=== PATIENT | female | born 1995 | race Hispanic/Latino ===

== ENCOUNTER 2017-11-30 14:36 | Emergency (ER) | payer SELFPAY ==
[2017-11-30] MEDS ORDERED: Ketorolac Tromethamine 60 MG/2 ML VIAL ONE (16:55)
[2017-11-30] MEDS ORDERED: diphenhydrAMINE 25 MG CAP ONE (16:55)
[2017-11-30] MEDS ORDERED: Metoclopramide HCl 10 MG TAB PO SCH (17:00)
== END 2017-11-30 18:29 | disposition home or self-care (01) ==
LOC: ERS 14:36
DX: R51 Headache (principal)
CPT/HCPCS: 96372; J1885

== ENCOUNTER 2018-02-27 21:26 | Emergency (ER) | payer SELFPAY ==
--- NOTE | 2018-02-27 22:16 | RAD ---
THREE VIEW RIGHT ANKLE 02/27/18 CLINICAL HISTORY: Emergency evaluation, pain, injury. FINDINGS: There is no evidence of fracture or dislocation. Mild soft tissue swelling of the right ankle is pres ent. IMPRESSION: No acute osseous abnormality of the right ankle. Mild soft tissue swelling. Correlate clinically. POS: MIGUEL
--- NOTE | 2018-02-27 23:48 | RAD ---
RADIOGRAPH OF RIGHT FOOT SERIES THREE VIEWS: 02/27/18 INDICATION: Posttraumatic right foot pain. FINDINGS: There is mild metatarsus prima varus and hallux valgus deformity and slight overlying soft tissue pro minence. Lisfranc joint is maintained. There is no discrete fracture. IMPRESSION: No acute fracture of right foot. POS: C
== END 2018-02-27 23:27 | disposition home or self-care (01) ==
LOC: ERS 21:26
DX: S93.401A Sprain of unspecified ligament of right ankle, initial encounter (principal); X50.1XXA Overexertion from prolonged static or awkward postures, initial encounter; Y93.66 Activity, soccer

== ENCOUNTER 2018-03-08 22:01 | Emergency (ER) | payer SELFPAY ==
[2018-03-09] MEDS ORDERED: Dexamethasone 4 mg/ml Vial ONE (00:19)
[2018-03-09] MEDS ORDERED: Ibuprofen 200 MG TAB ONE (00:19)
== END 2018-03-09 01:50 | disposition home or self-care (01) ==
LOC: ERS 22:01
DX: R50.9 Fever, unspecified (principal)
CPT/HCPCS: 87081; 87430; 87804; 99283; J1100

== ENCOUNTER 2018-04-24 22:31 | Emergency (ER) | payer SELFPAY ==
[2018-04-24] MEDS ORDERED: Dexamethasone 4 mg/ml Vial ONE (23:55)
== END 2018-04-25 00:24 | disposition home or self-care (01) ==
LOC: ERS 22:31
DX: J02.9 Acute pharyngitis, unspecified (principal); F41.9 Anxiety disorder, unspecified
CPT/HCPCS: 87081; 87430; 99283; J1100

== ENCOUNTER 2018-08-29 00:55 | Emergency (ER) | payer SELFPAY ==
[2018-08-29 01:24] LABS: #Basophils 0.1 thou/uL (0.0-0.2); #Eosinphils 0.2 thou/uL (0.0-0.7); #Lymphocytes 4.1 thou/uL (1.20-3.40); #Monocytes 0.7 thou/uL (0.11-0.59); %Basophils 0.6 % (0.0-1.0); %Eosinophils 2.1 % (0.0-10.0); %Lymphocytes 45.3 % (21.0-51.0); %Monocytes 7.3 % (0.0-10.0); %Neutrophils 44.7 % (42.0-75.0); Hemoglobin 11.9 g/dL (12.0-16.0); Mean Corpuscular HGB CONC 32.7 g/dL (32.0-36.0); Mean Corpuscular Hemoglobin 27.9 pg (27.0-31.0); Mean Corpuscular Volume 85.4 fL (78.0-98.0); Mean Platelet Volume 7.7 fL (7.4-10.4); Platelet Count 265 thou/uL (130-400); RBC Distribution Width 14.1 % (11.5-14.5); Red Blood Cell (RBC) Count 4.28 mill/uL (4.20-5.40)
[2018-08-29 01:36] LABS: BHCG - Serum Negative (NEGATIVE); Pregs Control Background? CLEAR/WHITE (CLR/WHITE); Pregs Control Bar Appear? YES (CONTROL BAR)
[2018-08-29 01:51] LABS: ALT (SGPT) 11 U/L (8-55); AST (SGOT) 17 U/L (5-34); Albumin 4.6 g/dL (3.5-5.0); Alkaline Phosphatase 74 U/L (40-150); Anion Gap 13 mmol/L (10-20); BUN (Urea Nitrogen) 11 mg/dL (7.0-18.7); Bilirubin, Total 0.3 mg/dL (0.2-1.2); Calc. Creatinine Clearance 0 mL/min (70-130); Calcium 9.4 mg/dL (7.8-10.44); Carbon Dioxide 22 mmol/L (22-29); Chloride 107 mmol/L (98-107); Estimated GFR-MDRD Greater than 90; Globulin 2.9 g/dL (2.4-3.5); Glucose 94 mg/dL (70-105); Potassium 3.9 mmol/L (3.5-5.1); Protein, Total 7.5 g/dL (6.0-8.3); Sodium 138 mmol/L (136-145)
[2018-08-29 01:54] LABS: CKMB 0.3 ng/mL (0-6.6); Troponin I Less than 0.010 ng/mL (< 0.028)
[2018-08-29] MEDS ORDERED: Ibuprofen 200 MG TAB ONE (03:01)
--- NOTE | 2018-08-29 08:34 | RAD ---
RADIOGRAPH CHEST 1 VIEW: HISTORY: 23-year-old female with chest pain. FINDINGS: There are no air space densities, pulmonary edema, pneumothorax, or cardiomegaly. The lateral costop hrenic angles are sharp. IMPRESSION: No acute cardiopulmonary findings. frank POS: GERALDINE
== END 2018-08-29 03:04 | disposition home or self-care (01) ==
LOC: ERS 00:55
DX: R07.89 Other chest pain (principal); F17.210 Nicotine dependence, cigarettes, uncomplicated
CPT/HCPCS: 36415; 71045; 80053; 82553; 83880; 84484; 84703; 85025; 85379; 93005

== ENCOUNTER 2018-09-19 18:00 | Emergency (ER) | payer SELFPAY ==
[2018-09-19] MEDS ORDERED: Ketorolac Tromethamine 30 MG/ML VIAL ONE (18:22)
[2018-09-19 18:48] LABS: #Basophils 0.1 thou/uL (0.0-0.2); #Eosinphils 0.1 thou/uL (0.0-0.7); #Monocytes 0.6 thou/uL (0.11-0.59); #Neutrophils 5.5 thou/uL (1.40-6.50); %Eosinophils 1.2 % (0.0-10.0); %Lymphocytes 31.8 % (21.0-51.0); %Monocytes 6.5 % (0.0-10.0); %Neutrophils 59.5 % (42.0-75.0); Hemoglobin 12.9 g/dL (12.0-16.0); Mean Corpuscular HGB CONC 32.9 g/dL (32.0-36.0); Mean Corpuscular Hemoglobin 28.3 pg (27.0-31.0); Mean Platelet Volume 7.4 fL (7.4-10.4); Platelet Count 333 thou/uL (130-400); RBC Distribution Width 12.7 % (11.5-14.5); Red Blood Cell (RBC) Count 4.57 mill/uL (4.20-5.40); White Blood Cell (WBC) Count 9.3 thou/uL (4.8-10.8)
[2018-09-19 18:53] LABS: BHCG - Serum Negative (NEGATIVE); Pregs Control Background? CLEAR/WHITE (CLR/WHITE); Pregs Control Bar Appear? YES (CONTROL BAR)
[2018-09-19 19:07] LABS: ALT (SGPT) 11 U/L (8-55); AST (SGOT) 20 U/L (5-34); Albumin 4.6 g/dL (3.5-5.0); Alkaline Phosphatase 82 U/L (40-150); Anion Gap 11 mmol/L (10-20); BUN (Urea Nitrogen) 8 mg/dL (7.0-18.7); Bilirubin, Total 0.5 mg/dL (0.2-1.2); Calc. Creatinine Clearance 0 mL/min (70-130); Calcium 9.7 mg/dL (7.8-10.44); Carbon Dioxide 26 mmol/L (22-29); Chloride 104 mmol/L (98-107); Estimated GFR-MDRD Greater than 90; Globulin 3.1 g/dL (2.4-3.5); Glucose 88 mg/dL (70-105); Potassium 4.3 mmol/L (3.5-5.1); Protein, Total 7.7 g/dL (6.0-8.3); Sodium 137 mmol/L (136-145)
[2018-09-19 19:11] LABS: CKMB 0.6 ng/mL (0-6.6); Troponin I Less than 0.010 ng/mL (< 0.028)
--- NOTE | 2018-09-19 19:15 | RAD ---
CHEST TWO VIEWS: 09/19/18 COMPARISON: 08/29/18 HISTORY: Pain. FINDINGS: Normal cardiac silhouette. Pulmonary vessels and hilum are normal. Costophrenic angles are clear. No consolidation, or mass. No pneumothorax or osseous abnormalities. IMPRESSION: No acute cardiopulmonary process. POS: MIGUEL
== END 2018-09-19 19:55 | disposition home or self-care (01) ==
LOC: ERS 18:00
DX: M94.0 Chondrocostal junction syndrome [Tietze] (principal); F41.9 Anxiety disorder, unspecified; F17.210 Nicotine dependence, cigarettes, uncomplicated
CPT/HCPCS: 36415; 71046; 80053; 82553; 84484; 84703; 85025; 93005; 96372; J1885

== ENCOUNTER 2019-01-12 18:01 | Emergency (ER) | payer SELFPAY ==
[2019-01-12 18:40] LABS: #Basophils 0.1 thou/uL (0.0-0.2); #Lymphocytes 3.1 thou/uL (1.20-3.40); #Monocytes 0.7 thou/uL (0.11-0.59); #Neutrophils 6.2 thou/uL (1.40-6.50); %Basophils 1.1 % (0.0-1.0); %Eosinophils 0.4 % (0.0-10.0); %Lymphocytes 30.7 % (21.0-51.0); %Neutrophils 60.8 % (42.0-75.0); Mean Corpuscular HGB CONC 31.9 g/dL (32.0-36.0); Mean Corpuscular Hemoglobin 28.2 pg (27.0-31.0); Mean Corpuscular Volume 88.6 fL (78.0-98.0); Mean Platelet Volume 7.2 fL (7.4-10.4); Platelet Count 361 thou/uL (130-400); RBC Distribution Width 11.7 % (11.5-14.5); White Blood Cell (WBC) Count 10.2 thou/uL (4.8-10.8)
[2019-01-12 18:47] LABS: BHCG - Serum Negative (NEGATIVE); Pregs Control Background? CLEAR/WHITE (CLR/WHITE); Pregs Control Bar Appear? YES (CONTROL BAR)
[2019-01-12 19:00] LABS: ALT (SGPT) 14 U/L (8-55); AST (SGOT) 20 U/L (5-34); Albumin 5.1 g/dL (3.5-5.0); Alkaline Phosphatase 80 U/L (40-150); Anion Gap 16 mmol/L (10-20); BUN (Urea Nitrogen) 6 mg/dL (7.0-18.7); Bilirubin, Total 0.7 mg/dL (0.2-1.2); Calc. Creatinine Clearance 0 mL/min (70-130); Calcium 10.5 mg/dL (7.8-10.44); Carbon Dioxide 24 mmol/L (22-29); Chloride 104 mmol/L (98-107); Estimated GFR-MDRD Greater than 90; Globulin 3.4 g/dL (2.4-3.5); Glucose 96 mg/dL (70-105); Potassium 3.6 mmol/L (3.5-5.1); Protein, Total 8.5 g/dL (6.0-8.3); Sodium 140 mmol/L (136-145)
[2019-01-12 20:24] LABS: Bilirubin Negative (Negative); Blood, Urine Moderate (Negative); Clarity CLEAR (Clear); Glucose, Urine (Dipstick) Negative (Negative); Leukocyte Negative (Negative); Nitrite Negative (Negative); Protein, Urine (Dipstick) Negative (Neg-Trace); Urobilinogen 0.2 mg/dL (0.2-1.0); pH, Urine 7.5 (5.0-9.0)
[2019-01-12 20:29] LABS: Bacteria/HPF Rare-Few HPF (None Seen); Hyaline Casts/LPF 0-3 HYALINE CAST LPF (0-3 Hyaline); Pathc Cast-AUWi Flag 0.14 (0-2.49); RBC/HPF 0-3 HPF (0-3); WBC/HPF 0-3 HPF (0-3)
[2019-01-12] MEDS ORDERED: Ondansetron PF 4 MG/2 ML Vial ONE (21:19)
[2019-01-12] MEDS ORDERED: Promethazine HCl 25 MG/ML VIAL ONE (23:41)
[2019-01-13] MEDS ORDERED: Promethazine HCl 25 MG/ML VIAL ONE (01:07)
[2019-01-13] MEDS ORDERED: Lorazepam 2 MG/ML VIAL ONE (01:18)
== END 2019-01-13 01:25 | disposition home or self-care (01) ==
LOC: ERS 18:01
DX: F41.9 Anxiety disorder, unspecified (principal); F17.210 Nicotine dependence, cigarettes, uncomplicated
CPT/HCPCS: 80053; 81003; 81015; 84703; 85025; 96365; 96375; J2060; J2405; J2550

== ENCOUNTER 2019-01-13 22:58 | Emergency (ER) | payer SELFPAY ==
[2019-01-14 00:02] LABS: Pregnancy Test - Urine (BHCG) Negative (Negative); Pregu Control Background? CLEAR/WHITE (CLR/WHITE); Pregu Control Bar Appear? YES (CONTROL BAR)
[2019-01-14 00:03] LABS: Bilirubin Negative (Negative); Blood, Urine Negative (Negative); Clarity CLOUDY (Clear); Glucose, Urine (Dipstick) Negative (Negative); Leukocyte Negative (Negative); Nitrite Negative (Negative); Protein, Urine (Dipstick) Negative (Neg-Trace); Specific Gravity, Urine 1.017 (1.002-1.036); Urobilinogen 0.2 mg/dL (0.2-1.0)
[2019-01-14 00:03] LABS: #Basophils 0.1 thou/uL (0.0-0.2); #Lymphocytes 2.7 thou/uL (1.20-3.40); #Monocytes 0.6 thou/uL (0.11-0.59); %Basophils 1.2 % (0.0-1.0); %Eosinophils 0.5 % (0.0-10.0); %Neutrophils 59.3 % (42.0-75.0); Hemoglobin 12.4 g/dL (12.0-16.0); Mean Corpuscular HGB CONC 32.3 g/dL (32.0-36.0); Mean Corpuscular Hemoglobin 28.6 pg (27.0-31.0); Mean Corpuscular Volume 88.6 fL (78.0-98.0); Mean Platelet Volume 7.3 fL (7.4-10.4); Platelet Count 320 thou/uL (130-400); RBC Distribution Width 11.5 % (11.5-14.5); Red Blood Cell (RBC) Count 4.33 mill/uL (4.20-5.40); White Blood Cell (WBC) Count 8.4 thou/uL (4.8-10.8)
[2019-01-14 00:04] LABS: Specific Gravity 1.017 (1.002-1.036)
[2019-01-14 00:11] LABS: Amphetamine Not Detected (NotDetected); Benzodiazepine Screen Detected (NotDetected); Cocaine Metabolite Screen Not Detected (NotDetected); Medtox Reader # READER 1; Methamphetamine Not Detected (NotDetected); Opiate Screen Not Detected (NotDetected); Phencyclidine (PCP) Not Detected (NotDetected); THC/Cannabinoid Screen Not Detected (NotDetected)
[2019-01-14 00:12] LABS: Barbiturates Screen Not Detected (NotDetected); Medtox Control Line Valid? VALID (VALID); Methadone Not Detected (NotDetected); Oxycodone Screen Not Detected (NotDetected); Tricyclic Screen Not Detected (NotDetected)
[2019-01-14 00:21] LABS: ALT (SGPT) 18 U/L (8-55); AST (SGOT) 19 U/L (5-34); Albumin 4.6 g/dL (3.5-5.0); Alkaline Phosphatase 71 U/L (40-150); Anion Gap 14 mmol/L (10-20); BUN (Urea Nitrogen) 7 mg/dL (7.0-18.7); Bilirubin, Total 0.5 mg/dL (0.2-1.2); Calc. Creatinine Clearance 0 mL/min (70-130); Calcium 10.1 mg/dL (7.8-10.44); Carbon Dioxide 25 mmol/L (22-29); Chloride 104 mmol/L (98-107); Estimated GFR-MDRD Greater than 90; Globulin 2.9 g/dL (2.4-3.5); Glucose 102 mg/dL (70-105); Lipase 12 U/L (8-78); Potassium 4.1 mmol/L (3.5-5.1); Protein, Total 7.5 g/dL (6.0-8.3); Sodium 139 mmol/L (136-145)
[2019-01-14] MEDS ORDERED: Ondansetron ODT 4 MG TAB ONE (02:57)
[2019-01-14] MEDS ORDERED: Dicyclomine 20 MG TAB ONE (02:57)
== END 2019-01-14 04:25 | disposition home or self-care (01) ==
LOC: ERS 22:58
DX: F41.9 Anxiety disorder, unspecified (principal); F17.210 Nicotine dependence, cigarettes, uncomplicated
CPT/HCPCS: 36415; 80053; 80306; 81003; 81025; 83690; 85025; 99284; Q0162

== ENCOUNTER 2019-04-07 20:46 | Emergency (ER) | payer SELFPAY ==
[2019-04-07 21:24] LABS: #Basophils 0.1 thou/uL (0.0-0.2); #Eosinphils 0.1 thou/uL (0.0-0.7); #Lymphocytes 3.4 thou/uL (1.20-3.40); #Monocytes 0.8 thou/uL (0.11-0.59); #Neutrophils 5.4 thou/uL (1.40-6.50); %Basophils 0.9 % (0.0-1.0); %Eosinophils 0.7 % (0.0-10.0); %Lymphocytes 35.3 % (21.0-51.0); %Monocytes 7.7 % (0.0-10.0); %Neutrophils 55.4 % (42.0-75.0); Hemoglobin 12.8 g/dL (12.0-16.0); Mean Corpuscular HGB CONC 32.3 g/dL (32.0-36.0); Mean Corpuscular Hemoglobin 27.8 pg (27.0-31.0); Mean Corpuscular Volume 85.9 fL (78.0-98.0); Mean Platelet Volume 7.5 fL (7.4-10.4); Platelet Count 285 thou/uL (130-400); RBC Distribution Width 12.3 % (11.5-14.5); Red Blood Cell (RBC) Count 4.61 mill/uL (4.20-5.40); White Blood Cell (WBC) Count 9.7 thou/uL (4.8-10.8)
[2019-04-07 21:45] LABS: ALT (SGPT) 17 U/L (8-55); AST (SGOT) 22 U/L (5-34); Albumin 4.7 g/dL (3.5-5.0); Alkaline Phosphatase 54 U/L (40-150); Anion Gap 11 mmol/L (10-20); BUN (Urea Nitrogen) 12 mg/dL (7.0-18.7); Bilirubin, Total 0.5 mg/dL (0.2-1.2); Calc. Creatinine Clearance 0 mL/min (70-130); Carbon Dioxide 26 mmol/L (22-29); Chloride 104 mmol/L (98-107); Estimated GFR-MDRD Greater than 90; Glucose 89 mg/dL (70-105); Potassium 3.9 mmol/L (3.5-5.1); Protein, Total 7.7 g/dL (6.0-8.3); Sodium 137 mmol/L (136-145)
[2019-04-07 21:51] LABS: Bilirubin Negative (Negative); Blood, Urine Negative (Negative); Clarity CLEAR (Clear); Glucose, Urine (Dipstick) Negative (Negative); Leukocyte Negative (Negative); Nitrite Negative (Negative); Protein, Urine (Dipstick) Negative (Neg-Trace); Specific Gravity, Urine 1.034 (1.002-1.036); Urobilinogen 0.2 mg/dL (0.2-1.0)
[2019-04-07 21:54] LABS: Pregnancy Test - Urine (BHCG) Negative (Negative); Pregu Control Background? CLEAR/WHITE (CLR/WHITE); Pregu Control Bar Appear? YES (CONTROL BAR); Specific Gravity 1.034 (1.002-1.036)
--- NOTE | 2019-04-08 00:06 | ULT ---
Exam: Pelvic ultrasound HISTORY: Pelvic pain COMPARISON: None TECHNIQUE: Multiple grayscale and color Doppler images were obtained in a transabdominal pelvic ultra sound. Spectral analysis of the Doppler waveforms of the ovaries were performed. FINDINGS: CERVIX: Unremarkable UTERUS: Normal in size without focal abnormality. ENDOMETRIAL STRIPE: 1.8 mm which is mildly prominent for a patient of this age. No fluid or fluid col lection is seen in the endometrial canal. Small amount of free fluid is present. This is probably physiologic in origin. RIGHT OVARY: Normal flow, without focal mass. LEFT OVARY: Normal flow, without focal mass. IMPRESSION: 1. Normal-appearing uterus and bilateral ovaries. Endometrial stripe is mildly prominent, but this ma y be related to the stage of the patient's menstrual cycle. No fluid or fluid collection is seen in the endometrial canal. 2. Small amount of free fluid in the pelvis which is probably physiologic in origin.
== END 2019-04-08 00:36 | disposition home or self-care (01) ==
LOC: ERS 20:46
DX: R10.30 Lower abdominal pain, unspecified (principal); F41.9 Anxiety disorder, unspecified; Z87.891 Personal history of nicotine dependence
CPT/HCPCS: 36415; 76856; 80053; 81003; 81025; 85025

== ENCOUNTER 2019-06-18 12:41 | Emergency (ER) | payer SELFPAY ==
[2019-06-18 13:42] LABS: #Basophils 0.1 thou/uL (0.0-0.2); #Eosinphils 0.1 thou/uL (0.0-0.7); #Lymphocytes 2.3 thou/uL (1.20-3.40); #Monocytes 0.7 thou/uL (0.11-0.59); #Neutrophils 4.2 thou/uL (1.40-6.50); %Basophils 0.8 % (0.0-1.0); %Eosinophils 1.1 % (0.0-10.0); %Lymphocytes 31.4 % (21.0-51.0); %Monocytes 10.1 % (0.0-10.0); %Neutrophils 56.7 % (42.0-75.0); Hemoglobin 12.5 g/dL (12.0-16.0); Mean Corpuscular HGB CONC 33.8 g/dL (32.0-36.0); Mean Corpuscular Hemoglobin 30.3 pg (27.0-31.0); Mean Corpuscular Volume 89.6 fL (78.0-98.0); Mean Platelet Volume 7.7 fL (7.4-10.4); Platelet Count 261 thou/uL (130-400); RBC Distribution Width 13.2 % (11.5-14.5); Red Blood Cell (RBC) Count 4.13 mill/uL (4.20-5.40); White Blood Cell (WBC) Count 7.4 thou/uL (4.8-10.8)
[2019-06-18 14:15] LABS: ALT (SGPT) 10 U/L (8-55); AST (SGOT) 17 U/L (5-34); Albumin 4.3 g/dL (3.5-5.0); Alkaline Phosphatase 48 U/L (40-150); Anion Gap 8 mmol/L (10-20); BUN (Urea Nitrogen) 9 mg/dL (7.0-18.7); Bilirubin, Total 0.6 mg/dL (0.2-1.2); Calc. Creatinine Clearance 0 mL/min (70-130); Calcium 9.9 mg/dL (7.8-10.44); Carbon Dioxide 24 mmol/L (22-29); Chloride 107 mmol/L (98-107); Estimated GFR-MDRD Greater than 90; Globulin 2.9 g/dL (2.4-3.5); Glucose 62 mg/dL (70-105); Lipase 22 U/L (8-78); Potassium 4.2 mmol/L (3.5-5.1); Protein, Total 7.2 g/dL (6.0-8.3); Sodium 135 mmol/L (136-145)
[2019-06-18 15:15] LABS: Bacteria/HPF None Seen HPF (None Seen); Bilirubin Negative (Negative); Blood, Urine Negative (Negative); Clarity Clear (Clear); Glucose, Urine (Dipstick) Normal (Negative); Leukocyte Negative Leu/uL (Negative); Mucous/LPF 1+ LPF (<2+); Nitrite Negative (Negative); Protein, Urine (Dipstick) 30 mg/dL (Neg-Trace); WBC/HPF 0-3 HPF (0-3)
--- NOTE | 2019-06-18 15:54 | ULT ---
US Pelvic Transvag W Doppler History: Pelvic pain Comparison: Pelvic ultrasound March 2019 Findings: Real-time grayscale, color, and spectral analysis of the pelvis was performed transabdomina l and transvaginal approach. Adequate vascular flow to both ovaries. Likely corpus luteum in the right ovary. Normal peripheral fo llicles of the left ovary. Endometrial thickness is 1.8 cm. Within the fundus is a subtle anechoic round anechoic focus with deepa n diameter of 0.32 cm which may reflect an early gestational sac given the positive hCG. No pole. No free fluid in the cul-de-sac. No subchorionic hemorrhage. Impression: Thickened endometrium with 0.32 cm anechoic focus within the uterine fundus endometrial c avity can be an early gestational sac given the positive hCG. Close follow-up ultrasound and hCG recommended.
[2019-06-19 23:05] LABS: Chlamydia by PCR Not Detected (NotDetected); GC by PCR Not Detected (NotDetected)
== END 2019-06-18 16:29 | disposition home or self-care (01) ==
LOC: ERS 12:41
DX: O23.591 Infection of other part of genital tract in pregnancy, first trimester (principal); B96.89 Other specified bacterial agents as the cause of diseases classified elsewhere; O99.341 Other mental disorders complicating pregnancy, first trimester; F41.9 Anxiety disorder, unspecified; Z3A.01 Less than 8 weeks gestation of pregnancy
CPT/HCPCS: 36415; 76856; 80053; 81003; 81015; 83690; 84702; 85025; 86900; 86901; 87491; 87591

== ENCOUNTER 2019-10-03 19:54 | Emergency (ER) | payer SELFPAY ==
[2019-10-03 20:29] LABS: Bacteria/HPF None Seen HPF (None Seen); Bilirubin Negative (Negative); Blood, Urine Negative (Negative); Clarity Clear (Clear); Glucose, Urine (Dipstick) Normal (Negative); Leukocyte 25 Leu/uL (Negative); Mucous/LPF Rare LPF (<2+); Nitrite Negative (Negative); Pregnancy Test - Urine (BHCG) POSITIVE (Negative); Pregu Control Background? CLEAR/WHITE (CLR/WHITE); Pregu Control Bar Appear? YES (CONTROL BAR); Protein, Urine (Dipstick) 50 mg/dL (Neg-Trace); RBC/HPF 0-3 HPF (0-3); Specific Gravity 1.037 (1.002-1.036); Urobilinogen 3 mg/dL (Less than 2); WBC/HPF 0-3 HPF (0-3)
[2019-10-03 20:36] LABS: #Basophils 0.1 thou/uL (0.0-0.2); #Eosinphils 0.1 thou/uL (0.0-0.7); #Lymphocytes 2.7 thou/uL (1.20-3.40); #Monocytes 0.6 thou/uL (0.11-0.59); #Neutrophils 6.5 thou/uL (1.40-6.50); %Basophils 0.6 % (0.0-1.0); %Eosinophils 1.2 % (0.0-10.0); %Monocytes 6.3 % (0.0-10.0); %Neutrophils 64.9 % (42.0-75.0); Hemoglobin 10.9 g/dL (12.0-16.0); Mean Corpuscular HGB CONC 35.6 g/dL (32.0-36.0); Mean Corpuscular Hemoglobin 32.9 pg (27.0-31.0); Mean Corpuscular Volume 92.4 fL (78.0-98.0); Mean Platelet Volume 7.1 fL (7.4-10.4); Platelet Count 240 thou/uL (130-400); RBC Distribution Width 12.3 % (11.5-14.5)
[2019-10-03 20:56] LABS: ALT (SGPT) 8 U/L (8-55); AST (SGOT) 15 U/L (5-34); Albumin 3.7 g/dL (3.5-5.0); Alkaline Phosphatase 62 U/L (40-110); Anion Gap 10 mmol/L (10-20); BUN (Urea Nitrogen) 5 mg/dL (7.0-18.7); Bilirubin, Total 0.2 mg/dL (0.2-1.2); Calc. Creatinine Clearance 0 mL/min (70-130); Carbon Dioxide 26 mmol/L (22-29); Chloride 105 mmol/L (98-107); Estimated GFR-MDRD Greater than 90; Globulin 2.8 g/dL (2.4-3.5); Glucose 103 mg/dL (70-105); Potassium 3.5 mmol/L (3.5-5.1); Protein, Total 6.5 g/dL (6.0-8.3); Sodium 137 mmol/L (136-145)
[2019-10-03] MEDS ORDERED: Fentanyl 100 MCG/2 ML VIAL ONE (21:26)
== END 2019-10-03 22:27 | disposition home or self-care (01) ==
LOC: ERS 19:54
DX: O99.612 Diseases of the digestive system complicating pregnancy, second trimester (principal); K46.9 Unspecified abdominal hernia without obstruction or gangrene; Z3A.20 20 weeks gestation of pregnancy
CPT/HCPCS: 80053; 81003; 81015; 81025; 83690; 84702; 85025; 96361; 96374; J3010

== ENCOUNTER 2019-11-26 14:23 | Day surgery (SDC) | payer SELFPAY ==
[2019-11-26] MEDS ORDERED: hydrALAZINE 20 MG/ML VIAL SLOW IVP PRN (14:56)
[2019-11-26 15:01] VITALS: BP 108/62; TEMP 98.5; BMI 25.1
[2019-11-26 15:45] LABS: FFN Internal QC Analyzer PASS (PASS); FFN Internal QC Cassette PASS (PASS); Fetal Fibronectin Negative (Negative)
[2019-11-26 16:48] LABS: Bacteria/HPF None Seen HPF (None Seen); Bilirubin Negative (Negative); Blood, Urine Negative (Negative); Clarity Clear (Clear); Glucose, Urine (Dipstick) Normal (Negative); Leukocyte Negative Leu/uL (Negative); Nitrite Negative (Negative); Protein, Urine (Dipstick) Negative (Neg-Trace); RBC/HPF 0-3 HPF (0-3); Squamous Epithelial 0-3 HPF (0-3); Urobilinogen Normal mg/dL (Less than 2); WBC/HPF None Seen HPF (0-3)
--- NOTE | 2019-11-27 07:54 | SS ---
DATE OF ADMISSION: 11/26/2019 DATE OF DISCHARGE: 11/26/2019 REGULAR PHYSICIAN: Sean Correa MD EVALUATING PHYSICIAN: Ryland Fish MD CHIEF COMPLAINT: Back pain and contractions. HISTORY OF PRESENT ILLNESS: Ms. Lennon is a 24-year-old G4, P3, with an estimated date of confinement of 02/17/2020, who presents complaining of lower back pain as well as which she believes to be contractions since yesterday afternoon. She denies urinary symptoms, vaginal bleeding or ruptured membranes. Her care has been with Dr. Correa without complications. PAST OBSTETRICAL HISTORY: Includes three vaginal deliveries at term. PAST MEDICAL HISTORY: None. PAST SURGICAL HISTORY: None. CURRENT MEDICATIONS: vitamins. ALLERGIES: NO KNOWN ALLERGIES. SOCIAL HISTORY: Denies tobacco, alcohol, or drug use. FAMILY HISTORY: Unremarkable. REVIEW OF SYSTEMS: Denies nausea, vomiting, fever, chills, ruptured membranes, vaginal bleeding, or urinary frequency or pain. PHYSICAL EXAMINATION: VITAL SIGNS: Stable. She is afebrile. GENERAL: She is pleasant and in no acute distress. ABDOMEN: Soft, nontender, and gravid. heart rate tracing is stable with no decelerations. No uterine contractions are seen over her period of observation here. Vaginal exam shows the cervix to be closed, long, midposition, but soft. LABORATORY DATA: Urinalysis returned showing a specific gravity of 1.006 with negative protein, negative ketones, negative blood, negative nitrites, negative bilirubin, negative leukocyte esterase. On microscopic, there is 0-3 rbc's, no wbc's seen, 0-3 squamous cells with no bacteria. fibronectin returns negative. ASSESSMENT: 1. 28 and 1/7th week intrauterine . 2. No evidence of labor or pyelonephritis. PLAN: The patient will be dismissed to home. She can use Tylenol for any discomfort she has, as well as a heating pad low on her back. She voiced understanding of her discharge instructions and will return here should she have any labor symptoms. labor precautions were reviewed with her in detail. She will follow up with Dr. Correa for her next scheduled appointment. Job ID: [id number]
== END 2019-11-26 17:35 | disposition home or self-care (01) ==
LOC: L&D/OP 14:23
PROVIDERS: ATTEND Family Medicine
DX: O47.03 False labor before 37 completed weeks of gestation, third trimester (principal); O99.89 Other specified diseases and conditions complicating pregnancy, childbirth and the puerperium; M54.5 Low back pain; Z3A.28 28 weeks gestation of pregnancy
CPT/HCPCS: 81003; 82731; 99284

== ENCOUNTER 2020-01-06 21:48 | Day surgery (SDC) | payer OTHER ==
[2020-01-06 22:39] VITALS: BP 109/59; TEMP 98.2; BMI 27.8
[2020-01-06] MEDS ORDERED: hydrALAZINE 20 MG/ML VIAL SLOW IVP PRN (23:16)
[2020-01-06 23:22] LABS: Bacteria/HPF None Seen HPF (None Seen); Bilirubin Negative (Negative); Blood, Urine Negative (Negative); Clarity Clear (Clear); Glucose, Urine (Dipstick) Normal (Negative); Leukocyte Negative Leu/uL (Negative); Nitrite Negative (Negative); Protein, Urine (Dipstick) 50 mg/dL (Neg-Trace); Squamous Epithelial 0-3 HPF (0-3); Urobilinogen 3 mg/dL (Less than 2); WBC/HPF 0-3 HPF (0-3)
--- NOTE | 2020-01-07 04:48 | PRG ---
DATE OF SERVICE: 01/06/2020 PRIMARY OB: Dr. Sean Correa. CHIEF COMPLAINT: Abdominal pain. HISTORY OF PRESENT ILLNESS: The patient is a 25-year-old, G4, P3 female with an intrauterine at 34 weeks' gestation, presenting to Labor and Delivery with right lower quadrant pain that began about 8 o'clock this morning. The patient reports that she in fact began feeling it when she woke up at around 0645 hours , but that became more present at 8. The patient throughout the day reports that it got somewhat worse till about 8 p.m. this evening and leveled off in its pain. She reports that the pain is most present with activity and movement and with lifting her legs. She attempted Tylenol and a hot bath with little relief. Because she felt the pain was getting worse, she came for evaluation. She describes the pain at times as starting in the right lower quadrant and moving toward her flank. The patient denies fever. She denies headache, chest pain, shortness of breath, nausea, vomiting, diarrhea, constipation, hip problems, knee problems, muscle weakness, or any new rashes. The patient denies any vaginal bleeding, leakage of fluid, urinary urgency or frequency. PAST MEDICAL HISTORY: Negative. PAST SURGICAL HISTORY: Negative. ALLERGIES: NO KNOWN DRUG ALLERGIES. MEDICATIONS: 1. vitamins. 2. Iron. PHYSICAL EXAMINATION: VITAL SIGNS: Blood pressure 109/53, heart rate of 82, and respiratory rate of 14. GENERAL: She appears to be in no acute distress. She is pleasant and cooperative to interact with. HEENT: Head is normocephalic and atraumatic. LUNGS: Clear to auscultation bilaterally. HEART: Has regular rate and rhythm. ABDOMEN: Soft and gravid. The patient initially reported pain with light palpation in her right lower quadrant. On re-examination, the patient had negative Watkins sign. Had no other tenderness. Did not have any significant reproducible pain with deviation of the uterus to the left or right and tolerated deeper palpation. The point tenderness appears to be quite low in the pelvis on the right side. The patient has no CVA tenderness. EXTREMITIES: Nontender, nonedematous. : Cervical exam per nursing staff is fingertip, thick, and high. heart tracing shows the fetus with a baseline in the 130s with moderate long-term variability, positive 15 x 15 accelerations. She had a single deceleration early in her evaluation, unexplainable; however, for the following hour plus time that we watched her, nothing was reproducible. Tocometer shows some irritability, but no contraction pattern. LABORATORY DATA: Urinalysis shows specific gravity of 1.037, protein of 1+, trace ketones, negative nitrites, negative leukocyte esterase, negative white blood cells, she had 4 to 6 red blood cells. No new bacteria and no casts. ASSESSMENT AND PLAN: The patient is a 25-year-old, G4, P3 female with an intrauterine at , who presented with right lower quadrant abdominal pain that she woke up with, has been present through the day associated with activity and movement. By history and physical exam, the pain is most consistent with musculoskeletal pain of . Also in consideration is something like a renal stone; however, she has no CVA tenderness and the pain by history and physical exam seem to have a quality consistent with a typical stone. She does have a minimal amount of red blood cells in the urinalysis. The patient has no evidence of labor at this time, and fetus has a category I tracing, reactive NST. The patient has been given reassurance and has been given labor precautions and instructions to return should her symptoms worsen. The patient has declined pain medication and overall seems to be doing well. She has an appointment with Dr. Correa at the end of this week. Job ID: [id number] [facility]
[2020-01-07] MEDS ORDERED: FLU VACC QS2019-20(6MOS UP)/PF 60 MCG/0.5 ML SYRINGE IM ONE (09:00)
== END 2020-01-07 01:12 | disposition home health service (06) ==
LOC: L&D/OP 21:48
PROVIDERS: ATTEND Family Medicine
DX: O99.89 Other specified diseases and conditions complicating pregnancy, childbirth and the puerperium (principal); R10.31 Right lower quadrant pain; Z3A.34 34 weeks gestation of pregnancy; Z79.899 Other long term (current) drug therapy
CPT/HCPCS: 81001; 99283

== ENCOUNTER 2020-10-08 16:19 | Emergency (ER) | payer OTHER ==
[2020-10-08 16:59] LABS: #Basophils 0.1 thou/uL (0.0-0.2); #Eosinphils 0.1 thou/uL (0.0-0.7); #Lymphocytes 3.2 thou/uL (1.20-3.40); #Monocytes 0.7 thou/uL (0.11-0.59); #Neutrophils 5.7 thou/uL (1.40-6.50); %Basophils 0.7 % (0.0-1.0); %Eosinophils 1.2 % (0.0-10.0); %Lymphocytes 32.7 % (21.0-51.0); %Monocytes 6.9 % (0.0-10.0); %Neutrophils 58.5 % (42.0-75.0); Hemoglobin 13.4 g/dL (12.0-16.0); Mean Corpuscular Hemoglobin 31.5 pg (27.0-31.0); Mean Corpuscular Volume 92.6 fL (78.0-98.0); Mean Platelet Volume 7.6 fL (7.4-10.4); Platelet Count 301 thou/uL (130-400); RBC Distribution Width 11.4 % (11.5-14.5); Red Blood Cell (RBC) Count 4.27 mill/uL (4.20-5.40); White Blood Cell (WBC) Count 9.7 thou/uL (4.8-10.8)
[2020-10-08 17:17] LABS: ALT (SGPT) 11 U/L (8-55); AST (SGOT) 18 U/L (5-34); Albumin 4.7 g/dL (3.5-5.0); Alkaline Phosphatase 74 U/L (40-110); Anion Gap 13 mmol/L (10-20); BUN (Urea Nitrogen) 10 mg/dL (7.0-18.7); Bilirubin, Total 0.5 mg/dL (0.2-1.2); Calc. Creatinine Clearance 0 mL/min (70-130); Calcium 9.8 mg/dL (7.8-10.44); Carbon Dioxide 27 mmol/L (22-29); Chloride 103 mmol/L (98-107); Estimated GFR-MDRD Greater than 90; Globulin 3.1 g/dL (2.4-3.5); Glucose 94 mg/dL (70-105); Protein, Total 7.8 g/dL (6.0-8.3); Sodium 139 mmol/L (136-145)
[2020-10-08 17:21] LABS: Bacteria/HPF None Seen HPF (None Seen); Bilirubin Negative (Negative); Blood, Urine Negative (Negative); Clarity Extra Turbid (Clear); Glucose, Urine (Dipstick) Normal (Negative); Ketone, Urine Negative (Negative); Leukocyte Negative Leu/uL (Negative); Nitrite Negative (Negative); Protein, Urine (Dipstick) 30 mg/dL (Neg-Trace); RBC/HPF 0-3 HPF (0-3); Specific Gravity, Urine 1.031 (1.002-1.036); Squamous Epithelial 0-3 HPF (0-3); Urobilinogen Normal mg/dL (Less than 2); WBC/HPF None Seen HPF (0-3); pH, Urine 8.5 (5.0-9.0)
[2020-10-08 17:25] LABS: Pregnancy Test - Urine (BHCG) Negative (Negative); Pregu Control Background? CLEAR/WHITE (CLR/WHITE); Pregu Control Bar Appear? YES (CONTROL BAR); Specific Gravity 1.031 (1.002-1.036)
[2020-10-08] MEDS ORDERED: Morphine 4 MG/ML VIAL ONE (17:44)
[2020-10-08] MEDS ORDERED: Famotidine/PF 20 mg/2ml Vial ONE (17:44)
[2020-10-08] MEDS ORDERED: Ondansetron PF 4 MG/2 ML Vial ONE (17:44)
--- NOTE | 2020-10-08 18:57 | CT ---
CT ABDOMEN NONCONTRAST CT PELVIS NONCONTRAST: (Urolithiasis protocol) DATE: 10/08/2020 HISTORY: 25-year-old female with epigastric abdominal pain, nausea, and vomiting. COMPARISON: None TECHNIQUE: IV injection of iodinated contrast media: None Oral contrast media: None FINDINGS: Other than for urolithiasis, the lack of IV and oral contrast limits the evaluation. Lung bases are clear. No pleural effusion, pneumoperitoneum, small bowel dilation, or abscess. Small to moderate amount of free fluid in the cul-de-sac, presumably physiologic in a female patient of this age group. Portal vein and its branches are contrast opacified, with no thrombosis. The hepatic veins are not contrast opacified. There is diffuse mild periportal edema throughout the liver. Slightly low hepatic attenuation of the parenchyma may represent fatty liver. No discrete focal hepatic lesion. Normal kidneys, adrenals, abdominal aorta, pancreas, spleen, and appendix. Urinary bladder incompletely distended. No osseous abnormality identified. IMPRESSION: 1) diffuse periportal edema throughout the liver and probable mild hepatic steatosis. Recommend corre lation with liver enzymes and bilirubin. 2) no other pathology identified.
== END 2020-10-08 21:02 | disposition home or self-care (01) ==
LOC: ERS 16:19
DX: R11.2 Nausea with vomiting, unspecified (principal); R10.13 Epigastric pain; F41.9 Anxiety disorder, unspecified
CPT/HCPCS: 36415; 74177; 80053; 81003; 81015; 81025; 83690; 85025; 96374; 96375; J2270; J2405; S0028

== ENCOUNTER 2021-01-26 11:13 | Emergency (ER) | payer SELFPAY ==
[~2021-01-26 11:13] MED LIST: Iopamidol-370 76% 500 ML 1 ML ONE
[2021-01-26] MEDS ORDERED: Dicyclomine 20 MG TAB ONE (11:58)
[2021-01-26] MEDS ORDERED: Ondansetron PF 4 MG/2 ML Vial ONE (11:58)
[2021-01-26 12:01] LABS: #Eosinphils 0.1 thou/uL (0.0-0.7); #Lymphocytes 2.3 thou/uL (1.20-3.40); #Monocytes 0.6 thou/uL (0.11-0.59); #Neutrophils 6.4 thou/uL (1.40-6.50); %Basophils 0.5 % (0.0-1.0); %Eosinophils 0.6 % (0.0-10.0); %Lymphocytes 24.8 % (21.0-51.0); %Monocytes 6.1 % (0.0-10.0); Mean Corpuscular HGB CONC 32.9 g/dL (32.0-36.0); Mean Corpuscular Hemoglobin 29.8 pg (27.0-31.0); Mean Corpuscular Volume 90.5 fL (78.0-98.0); Mean Platelet Volume 7.8 fL (7.4-10.4); Platelet Count 331 thou/uL (130-400); RBC Distribution Width 11.7 % (11.5-14.5); Red Blood Cell (RBC) Count 4.02 mill/uL (4.20-5.40); White Blood Cell (WBC) Count 9.4 thou/uL (4.8-10.8)
[2021-01-26] MEDS ORDERED: Ketorolac Tromethamine 30 MG/ML VIAL ONE ×2 (12:37→16:02)
[2021-01-26 12:38] LABS: ALT (SGPT) 10 U/L (8-55); AST (SGOT) 16 U/L (5-34); Albumin 4.5 g/dL (3.5-5.0); Alkaline Phosphatase 72 U/L (40-110); Anion Gap 15 mmol/L (10-20); BUN (Urea Nitrogen) 8 mg/dL (7.0-18.7); Bilirubin, Total 0.9 mg/dL (0.2-1.2); Calc. Creatinine Clearance 0 mL/min (70-130); Calcium 9.3 mg/dL (7.8-10.44); Carbon Dioxide 23 mmol/L (22-29); Chloride 104 mmol/L (98-107); Glucose 91 mg/dL (70-105); Lipase 11 U/L (8-78); Potassium 3.7 mmol/L (3.5-5.1); Protein, Total 7.5 g/dL (6.0-8.3); Sodium 138 mmol/L (136-145)
[2021-01-26 12:57] LABS: Bacteria/HPF None Seen HPF (None Seen); Bilirubin Negative (Negative); Blood, Urine 3+ (Negative); Clarity Clear (Clear); Glucose, Urine (Dipstick) Normal (Negative); Ketone, Urine 100 mg/dL (Negative); Leukocyte Negative Leu/uL (Negative); Nitrite Negative (Negative); Pregnancy Test - Urine (BHCG) Negative (Negative); Pregu Control Background? CLEAR/WHITE (CLR/WHITE); Pregu Control Bar Appear? YES (CONTROL BAR); Protein, Urine (Dipstick) 100 mg/dL (Neg-Trace); RBC/HPF Greater than 50 HPF (0-3); Specific Gravity 1.041 (1.002-1.036); Specific Gravity, Urine 1.041 (1.002-1.036); Urobilinogen Normal mg/dL (Less than 2); WBC/HPF 0-3 HPF (0-3); pH, Urine 6.5 (5.0-9.0)
== END 2021-01-26 16:07 | disposition home or self-care (01) ==
LOC: ERS 11:13
DX: N83.202 Unspecified ovarian cyst, left side (principal)
CPT/HCPCS: 74177; 76856; 80053; 81003; 81015; 81025; 83690; 85025; 93976; 96374; 96375; 96376; J1885; J2405; Q9967

== ENCOUNTER 2021-12-17 18:10 | Emergency (ER) | payer SELFPAY | END 2021-12-17 20:04 | disposition short-term general hospital (02) | LOC: ERS 18:10 | DX: O9A.213 Injury, poisoning and certain other consequences of external causes complicating pregnancy, third trimester (principal); S39.91XA Unspecified injury of abdomen, initial encounter; W11.XXXA Fall on and from ladder, initial encounter; Y93.E9 Activity, other interior property and clothing maintenance; Z3A.30 30 weeks gestation of pregnancy | CPT/HCPCS: 99284 ==

== ENCOUNTER 2022-05-19 23:09 | Emergency (ER) | payer SELFPAY ==
[2022-05-19] MEDS ORDERED: Acetaminophen 500 MG TAB ONE (23:54)
[2022-05-20] MEDS ORDERED: Ketorolac Tromethamine 30 MG/ML VIAL ONE (00:58)
[2022-05-20] MEDS ORDERED: Metoclopramide HCl 10 MG/2 ML VIAL ONE (00:58)
[2022-05-20] MEDS ORDERED: diphenhydrAMINE 50 MG/ML VIAL ONE (00:58)
[2022-05-20 01:05] LABS: #Basophils 0.1 thou/uL (0.0-0.2); #Eosinphils 0.3 thou/uL (0.0-0.7); #Lymphocytes 3.6 thou/uL (1.20-3.40); #Monocytes 0.5 thou/uL (0.11-0.59); %Basophils 0.8 % (0.0-1.0); %Eosinophils 3.2 % (0.0-10.0); %Lymphocytes 42.3 % (21.0-51.0); %Monocytes 6.3 % (0.0-10.0); %Neutrophils 47.4 % (42.0-75.0); Hemoglobin 11.5 g/dL (12.0-16.0); Mean Corpuscular HGB CONC 34.6 g/dL (32.0-36.0); Mean Corpuscular Hemoglobin 32.6 pg (27.0-31.0); Mean Corpuscular Volume 94.5 fL (78.0-98.0); Mean Platelet Volume 6.9 fL (7.4-10.4); Platelet Count 303 thou/uL (130-400); RBC Distribution Width 12.4 % (11.5-14.5); Red Blood Cell (RBC) Count 3.52 mill/uL (4.20-5.40); White Blood Cell (WBC) Count 8.4 thou/uL (4.8-10.8)
[2022-05-20 01:23] LABS: Anion Gap 12 mmol/L (10-20); BUN (Urea Nitrogen) 10 mg/dL (7.0-18.7); Calc. Creatinine Clearance 0 mL/min (70-130); Calcium 9.2 mg/dL (7.8-10.44); Carbon Dioxide 25 mmol/L (22-29); Chloride 108 mmol/L (98-107); Estimated GFR 127; Glucose 90 mg/dL (70-105); Potassium 3.9 mmol/L (3.5-5.1); Sodium 141 mmol/L (136-145)
== END 2022-05-20 02:49 | disposition home or self-care (01) ==
LOC: ERS 23:09
DX: R51.9 Headache, unspecified (principal)
CPT/HCPCS: 36415; 70450; 80048; 85025; 96365; 96375; J1200; J1885; J2765

== ENCOUNTER 2023-06-16 22:29 | Inpatient (IN) | payer MEDICAID, SELFPAY ==
[2023-06-17 00:24] VITALS: BMI 25.3
[2023-06-17] MEDS ORDERED: Piperacillin/Tazobactam 3.375 GM in Sodium Chloride 0.9% 100 ML IVPB SCH (02:15)
[2023-06-17] MEDS ORDERED: Ketorolac Tromethamine 30 MG/ML VIAL IVP SCH (02:15)
[2023-06-17] MEDS: Sodium Chloride 0.9% 1,000 ML IV SCH ×3 (02:33→19:06)
[2023-06-17 06:23] LABS: Hemoglobin 9.3 g/dL (12.0-16.0); Mean Corpuscular Hemoglobin 26.1 pg (27.0-31.0); Mean Corpuscular Volume 81.7 fl (78.0-98.0); Platelet Count 203 10x3/uL (130-400); RBC Distribution Width 14.6 % (11.5-14.5); Red Blood Cell (RBC) Count 3.56 mill/uL (4.20-5.40); White Blood Cell (WBC) Count 7.5 10x3/uL (4.8-10.8)
[2023-06-17 06:34] LABS: Delete Auto Diff?? YES; Manual Diff?? YES
[2023-06-17] MEDS: Morphine 4 MG/ML VIAL SLOW IVP PRN ×2 (06:35→13:09)
[2023-06-17 06:56] LABS: Anion Gap 9 mmol/L (10-20); BUN (Urea Nitrogen) 10 mg/dL (7.0-18.7); Calc. Creatinine Clearance 134 mL/min (70-130); Calcium 8.4 mg/dL (7.8-10.44); Carbon Dioxide 25 mmol/L (22-29); Chloride 105 mmol/L (98-107); Estimated GFR 124; Glucose 91 mg/dL (70-105); Potassium 3.3 mmol/L (3.5-5.1); Sodium 136 mmol/L (136-145)
[2023-06-17 07:42] LABS: Band 45 % (5-11); Hypochromia SLIGHT = 6-15 cells HPF (0-5); Lymphocytes 14 % (21-51); Microcytosis SLIGHT = 6-15 cells HPF (0-5); Monocytes 3 % (0-10); Neutrophil 37 % (42-75); Platelet Adequacy Comment Platelets Normal; Poikilocytosis MARKED = >30 cells HPF (0-5); Polychromasia SLIGHT = 2-3 cells HPF (0-2); Total Cell Count 102
[2023-06-17] MEDS: Pantoprazole 40 MG VIAL IVP SCH (08:17)
[2023-06-17] MEDS: HYDROcodone/Acetaminophen 7.5/325 mg Tablet PO PRN ×3 (08:22→23:09)
[2023-06-17] MEDS: Piperacillin/Tazobactam 3.375 GM in Sodium Chloride 0.9% 100 ML IVPB SCH ×2 (10:00→17:47)
[2023-06-17] MEDS: Ondansetron PF 4 MG/2 ML Vial IVP PRN (17:47)
[2023-06-17] MEDS ORDERED: Loperamide HCl 2 MG CAP PO PRN (17:53)
[2023-06-17 20:12] LABS: Campy jejuni + coli by PCR Negative (Negative); STEC Shiga Toxin 1+2 Negative (Negative); Salmonella spp. by PCR Negative (Negative); Shigella spp + EIEC by PCR POSITIVE (Negative)
[2023-06-17] MEDS: Acetaminophen 325 MG TAB PO PRN (20:51)
[2023-06-18] MEDS: Ondansetron PF 4 MG/2 ML Vial IVP PRN (01:30)
[2023-06-18] MEDS: Piperacillin/Tazobactam 3.375 GM in Sodium Chloride 0.9% 100 ML IVPB SCH ×3 (01:43→17:47)
[2023-06-18] MEDS: Morphine 4 MG/ML VIAL SLOW IVP PRN ×2 (01:44→11:50)
[2023-06-18] MEDS ORDERED: Ketorolac Tromethamine 30 MG/ML VIAL IVP SCH (01:45)
[2023-06-18] MEDS: Promethazine HCl 12.5 MG in Sodium Chloride 0.9% 50 ML IVPB PRN ×2 (02:03→17:03)
[2023-06-18] MEDS: Sodium Chloride 0.9% 1,000 ML IV SCH ×2 (02:10→17:08)
[2023-06-18 06:00] LABS: #Eosinphils 0.1 thou/uL (0.0-0.7); #Monocytes 0.6 thou/uL (0.11-0.59); #Neutrophils 2.4 thou/uL (1.40-6.50); %Basophils 0.2 % (0.0-1.0); %Eosinophils 1.4 % (0.0-10.0); %Lymphocytes 35.7 % (21.0-51.0); %Monocytes 12.4 % (0.0-10.0); %Neutrophils 50.1 % (42.0-75.0); Mean Corpuscular HGB CONC 31.5 g/dL (32.0-36.0); Mean Corpuscular Volume 82.5 fl (78.0-98.0); Mean Platelet Volume 10.5 fL (7.4-10.4); Platelet Count 179 10x3/uL (130-400); RBC Distribution Width 14.7 % (11.5-14.5); Red Blood Cell (RBC) Count 3.08 mill/uL (4.20-5.40); White Blood Cell (WBC) Count 4.8 10x3/uL (4.8-10.8)
[2023-06-18 06:26] LABS: Anion Gap 8 mmol/L (10-20); BUN (Urea Nitrogen) 7 mg/dL (7.0-18.7); Calc. Creatinine Clearance 143 mL/min (70-130); Calcium 8.3 mg/dL (7.8-10.44); Carbon Dioxide 26 mmol/L (22-29); Chloride 107 mmol/L (98-107); Estimated GFR 126; Glucose 85 mg/dL (70-105); Magnesium 1.6 mg/dL (1.6-2.6); Potassium 3.5 mmol/L (3.5-5.1); Sodium 137 mmol/L (136-145)
[2023-06-18] MEDS: Pantoprazole 40 MG VIAL IVP SCH (08:30)
[2023-06-18] MEDS: HYDROcodone/Acetaminophen 7.5/325 mg Tablet PO PRN ×3 (08:57→20:58)
[2023-06-18] MEDS: Donnatal Elixir 16.2 MG/5 ML UDCUP PO PRN (16:58)
[2023-06-19] MEDS: Piperacillin/Tazobactam 3.375 GM in Sodium Chloride 0.9% 100 ML IVPB SCH ×2 (01:35→09:30)
[2023-06-19] MEDS: HYDROcodone/Acetaminophen 7.5/325 mg Tablet PO PRN ×5 (01:35→21:02)
[2023-06-19] MEDS: Sodium Chloride 0.9% 1,000 ML IV SCH ×3 (03:26→23:23)
[2023-06-19] MEDS: Promethazine HCl 12.5 MG in Sodium Chloride 0.9% 50 ML IVPB PRN ×3 (06:19→21:38)
[2023-06-19 07:13] LABS: #Eosinphils 0.1 thou/uL (0.0-0.7); #Monocytes 0.7 thou/uL (0.11-0.59); #Neutrophils 2.6 thou/uL (1.40-6.50); %Basophils 0.5 % (0.0-1.0); %Eosinophils 2.4 % (0.0-10.0); %Lymphocytes 42.2 % (21.0-51.0); %Neutrophils 43.7 % (42.0-75.0); Mean Corpuscular HGB CONC 31.5 g/dL (32.0-36.0); Mean Corpuscular Hemoglobin 26.1 pg (27.0-31.0); Mean Corpuscular Volume 82.7 fl (78.0-98.0); Mean Platelet Volume 10.5 fL (7.4-10.4); Platelet Count 195 10x3/uL (130-400); RBC Distribution Width 14.6 % (11.5-14.5); Red Blood Cell (RBC) Count 3.07 mill/uL (4.20-5.40); White Blood Cell (WBC) Count 5.9 10x3/uL (4.8-10.8)
[2023-06-19 07:36] LABS: Anion Gap 9 mmol/L (10-20); BUN (Urea Nitrogen) 6 mg/dL (7.0-18.7); Calc. Creatinine Clearance 128 mL/min (70-130); Calcium 8.1 mg/dL (7.8-10.44); Carbon Dioxide 25 mmol/L (22-29); Chloride 106 mmol/L (98-107); Estimated GFR 123; Glucose 92 mg/dL (70-105); Magnesium 1.7 mg/dL (1.6-2.6); Potassium 3.7 mmol/L (3.5-5.1); Sodium 136 mmol/L (136-145)
[2023-06-19] MEDS: Pantoprazole 40 MG VIAL IVP SCH (09:30)
[2023-06-19] MEDS: Donnatal Elixir 16.2 MG/5 ML UDCUP PO PRN (10:06)
[2023-06-19 12:09] LABS: Iron 17 ug/dL (50-170); Iron Binding Capacity, Total 306 mcg/dL (265-497)
[2023-06-19 12:48] LABS: BHCG - Serum Negative (NEGATIVE)
[2023-06-19 12:49] LABS: Pregs Control Background? CLEAR/WHITE (CLR/WHITE); Pregs Control Bar Appear? YES (CONTROL BAR)
[2023-06-19] MEDS: Morphine 4 MG/ML VIAL SLOW IVP PRN (13:41)
[2023-06-19] MEDS ORDERED: diphenhydrAMINE 25 MG CAP PO SCH (22:20)
[2023-06-19] MEDS ORDERED: Ketorolac Tromethamine 30 MG/ML VIAL IVP SCH (23:00)
[2023-06-20] MEDS: HYDROcodone/Acetaminophen 7.5/325 mg Tablet PO PRN ×2 (06:58→14:27)
[2023-06-20] MEDS: Pantoprazole 40 MG VIAL IVP SCH (07:59)
[2023-06-20] MEDS: Acetaminophen 325 MG TAB PO PRN (07:59)
[2023-06-20 08:36] VITALS: BP 108/71; TEMP 99.1
[2023-06-20] MEDS: Sodium Chloride 0.9% 1,000 ML IV SCH (13:35)
== END 2023-06-20 16:38 | disposition home or self-care (01) | DRG 372 ==
LOC: T4-B 06-17 00:22 → OBSVTOIN 06-17 17:53
PROVIDERS: ADMIT Internal Medicine; ATTEND Internal Medicine
DX: A04.8 Other specified bacterial intestinal infections (principal); Z16.20 Resistance to unspecified antibiotic; A03.9 Shigellosis, unspecified; R51.9 Headache, unspecified; F41.9 Anxiety disorder, unspecified; D50.9 Iron deficiency anemia, unspecified; Z79.899 Other long term (current) drug therapy; Z87.891 Personal history of nicotine dependence
CPT/HCPCS: 36415; 70450; 80048; 82728; 83540; 83550; 83735; 84703; 85025; 86140; 87324; 87449; 87505; 96374; 96375; 96376; C9113; G0378; J0744; J1885; J2270; J2405; J2543; J2550; J3490; J7050

== ENCOUNTER 2023-09-18 08:23 | Emergency (ER) | payer SELFPAY ==
[2023-09-18 08:57] LABS: #Basophils 0.1 thou/uL (0.0-0.2); #Eosinphils 0.2 thou/uL (0.0-0.7); #Monocytes 0.6 thou/uL (0.11-0.59); #Neutrophils 5.6 thou/uL (1.40-6.50); %Basophils 0.7 % (0.0-1.0); %Eosinophils 2.3 % (0.0-10.0); %Lymphocytes 26.6 % (21.0-51.0); %Monocytes 6.5 % (0.0-10.0); %Neutrophils 63.6 % (42.0-75.0); Hemoglobin 10.6 g/dL (12.0-16.0); Mean Corpuscular HGB CONC 31.2 g/dL (32.0-36.0); Mean Corpuscular Volume 83.5 fl (78.0-98.0); Mean Platelet Volume 9.4 fL (7.4-10.4); Platelet Count 403 10x3/uL (130-400); RBC Distribution Width 14.5 % (11.5-14.5); Red Blood Cell (RBC) Count 4.07 mill/uL (4.20-5.40); White Blood Cell (WBC) Count 8.8 10x3/uL (4.8-10.8)
[2023-09-18] MEDS ORDERED: Ondansetron ODT 4 MG TAB ONE (08:59)
[2023-09-18 09:24] LABS: ALT (SGPT) 19 U/L (8-55); AST (SGOT) 21 U/L (5-34); Albumin 4.6 g/dL (3.5-5.0); Alkaline Phosphatase 59 U/L (40-110); Anion Gap 13 mmol/L (10-20); BUN (Urea Nitrogen) 11 mg/dL (7.0-18.7); Bilirubin, Total 0.3 mg/dL (0.2-1.2); Calc. Creatinine Clearance 0 mL/min (70-130); Calcium 9.4 mg/dL (7.8-10.44); Carbon Dioxide 23 mmol/L (22-29); Chloride 103 mmol/L (98-107); Estimated GFR 122; Globulin 2.6 g/dL (2.4-3.5); Glucose 94 mg/dL (70-105); Lipase 23 U/L (8-78); Protein, Total 7.2 g/dL (6.0-8.3); Sodium 135 mmol/L (136-145)
[2023-09-18 09:38] LABS: Bacteria/HPF None Seen HPF (None Seen); Bilirubin Negative (Negative); Blood, Urine Negative (Negative); CAUTI Indications for Culture Pelvic or flank pain; Clarity Clear (Clear); Glucose, Urine (Dipstick) Normal (Negative); Ketone, Urine Negative (Negative); Leukocyte Negative Leu/uL (Negative); Nitrite Negative (Negative); Protein, Urine (Dipstick) Negative (Neg-Trace); RBC/HPF 0-3 HPF (0-3); Specific Gravity, Urine 1.019 (1.002-1.036); Squamous Epithelial 0-3 HPF (0-3); Urobilinogen Normal mg/dL (Less than 2); WBC/HPF 0-3 HPF (0-3)
[2023-09-18 09:39] LABS: Pregnancy Test - Urine (BHCG) Negative (Negative)
[2023-09-18 09:40] LABS: Pregu Control Background? CLEAR/WHITE (CLR/WHITE); Pregu Control Bar Appear? YES (CONTROL BAR); Specific Gravity 1.019 (1.002-1.036)
[2023-09-18 09:41] LABS: Urine Culture Reflex No No
[2023-09-18 09:45] LABS: Amphetamine Not Detected (NotDetected); Barbiturates Screen Not Detected (NotDetected); Benzodiazepine Screen Not Detected (NotDetected); Cocaine Metabolite Screen Not Detected (NotDetected); Methadone Not Detected (NotDetected); Methamphetamine Not Detected (NotDetected); Opiate Screen Not Detected (NotDetected); Oxycodone Screen Not Detected (NotDetected); Phencyclidine (PCP) Not Detected (NotDetected); THC/Cannabinoid Screen Detected (NotDetected); Tricyclic Screen Not Detected (NotDetected)
== END 2023-09-18 10:09 | disposition home or self-care (01) ==
LOC: ERS 08:23
DX: R11.0 Nausea (principal); R10.9 Unspecified abdominal pain; F17.290 Nicotine dependence, other tobacco product, uncomplicated
CPT/HCPCS: 36415; 80053; 80306; 81001; 81025; 83690; 85025; 99284; Q0162

== ENCOUNTER 2023-11-03 14:42 | Emergency (ER) | payer OTHER, SELFPAY ==
[2023-11-03] MEDS ORDERED: Ondansetron PF 4 MG/2 ML Vial ONE (15:04)
[2023-11-03] MEDS ORDERED: Ketorolac Tromethamine 30 MG/ML VIAL ONE (15:04)
[2023-11-03 15:24] LABS: BHCG - Serum Negative (NEGATIVE); Pregs Control Background? CLEAR/WHITE (CLR/WHITE); Pregs Control Bar Appear? YES (CONTROL BAR)
[2023-11-03 15:25] LABS: #Basophils 0.1 thou/uL (0.0-0.2); #Eosinphils 0.1 thou/uL (0.0-0.7); #Monocytes 0.8 thou/uL (0.11-0.59); #Neutrophils 5.5 thou/uL (1.40-6.50); %Basophils 0.5 % (0.0-1.0); %Lymphocytes 33.5 % (21.0-51.0); %Monocytes 8.4 % (0.0-10.0); %Neutrophils 56.4 % (42.0-75.0); Hematocrit 35.1 % (36.0-47.0); Mean Corpuscular HGB CONC 31.3 g/dL (32.0-36.0); Mean Corpuscular Hemoglobin 25.8 pg (27.0-31.0); Mean Corpuscular Volume 82.4 fl (78.0-98.0); Mean Platelet Volume 9.6 fL (7.4-10.4); Platelet Count 389 10x3/uL (130-400); RBC Distribution Width 15.3 % (11.5-14.5); Red Blood Cell (RBC) Count 4.26 mill/uL (4.20-5.40); White Blood Cell (WBC) Count 9.8 10x3/uL (4.8-10.8)
[2023-11-03 15:29] LABS: Bacteria/HPF None Seen HPF (None Seen); Bilirubin Negative (Negative); Blood, Urine Negative (Negative); CAUTI Indications for Culture Pelvic or flank pain; Clarity Extra Turbid (Clear); Glucose, Urine (Dipstick) Normal (Negative); Ketone, Urine Negative (Negative); Leukocyte Negative Leu/uL (Negative); Nitrite Negative (Negative); Protein, Urine (Dipstick) 20 mg/dL (Neg-Trace); Specific Gravity, Urine 1.028 (1.002-1.036); Urobilinogen Normal mg/dL (Less than 2); WBC/HPF None Seen HPF (0-3); pH, Urine 7.5 (5.0-9.0)
[2023-11-03 15:31] LABS: Urine Culture Reflex No No
[2023-11-03 15:38] LABS: ALT (SGPT) 17 U/L (8-55); AST (SGOT) 19 U/L (5-34); Albumin 4.8 g/dL (3.5-5.0); Alkaline Phosphatase 69 U/L (40-110); Anion Gap 11 mmol/L (10-20); BUN (Urea Nitrogen) 8 mg/dL (7.0-18.7); Bilirubin, Total 0.4 mg/dL (0.2-1.2); Calc. Creatinine Clearance 0 mL/min (70-130); Calcium 9.7 mg/dL (7.8-10.44); Carbon Dioxide 26 mmol/L (22-29); Chloride 104 mmol/L (98-107); Estimated GFR 122; Globulin 3.1 g/dL (2.4-3.5); Glucose 96 mg/dL (70-105); Lipase 21 U/L (8-78); Potassium 4.1 mmol/L (3.5-5.1); Protein, Total 7.9 g/dL (6.0-8.3); Sodium 137 mmol/L (136-145)
== END 2023-11-03 16:52 | disposition home or self-care (01) ==
LOC: ERS 14:42 → EEVIPCON 14:42 → ERS 16:52
DX: R10.11 Right upper quadrant pain (principal); R31.9 Hematuria, unspecified
CPT/HCPCS: 74176; 80053; 81001; 83690; 84703; 85025; 96361; 96374; 96375; J1885; J2405

== ENCOUNTER 2025-06-20 21:02 | Emergency (ER) | payer MEDICAID, SELFPAY ==
[2025-06-20 23:07] LABS: #Basophils 0.06 10x3/uL (0.0-0.2); #Eosinophils 0.09 10x3/uL (0.0-0.7); #Monocytes 0.99 10x3/uL (0.11-0.59); #Neutrophils 7.52 10x3/uL (1.40-6.50); %Basophils 0.5 % (0.0-1.0); %Eosinophils 0.7 % (0.0-10.0); %Lymphocytes 32.2 % (21.0-51.0); %Monocytes 7.7 % (0.0-10.0); %Neutrophils 58.7 % (42.0-75.0); Hematocrit 34.2 % (36.0-47.0); Hemoglobin 11.3 g/dL (12.0-16.0); Mean Corpuscular Hemoglobin 27.6 pg (27.0-31.0); Mean Corpuscular Volume 83.6 fL (78.0-98.0); Platelet Count 327 10x3/uL (130-400); Red Blood Cell (RBC) Count 4.09 mill/uL (4.20-5.40); White Blood Cell (WBC) Count 12.81 10x3/uL (4.8-10.8)
[2025-06-20 23:20] LABS: Bacteria/HPF None Seen HPF (None Seen); CAUTI Indications for Culture Pregnancy; Glucose, Urine (Dipstick) Normal (Negative); Leukocyte 25 Leu/uL (Negative); Protein, Urine (Dipstick) 30 mg/dL (Neg-Trace); Specific Gravity, Urine 1.047 (1.002-1.036); WBC/HPF 0-3 HPF (0-3)
[2025-06-20 23:24] LABS: ALT (SGPT) 19 U/L (Less than 34); AST (SGOT) 23 U/L (11-34); Albumin 4.3 g/dL (3.1-4.5); Alkaline Phosphatase 62 U/L (40-110); Anion Gap 16 mmol/L (10-20); BUN (Urea Nitrogen) 11 mg/dL (7.0-18.7); Bilirubin, Total 0.2 mg/dL (0.3-1.2); Calc. Creatinine Clearance 0 mL/min (70-130); Calcium 9.2 mg/dL (7.8-10.44); Carbon Dioxide 21 mmol/L (22-29); Chloride 106 mmol/L (98-107); Globulin 3.4 g/dL (2.4-3.5); Glucose 84 mg/dL (70-105); Magnesium 1.9 mg/dL (1.6-2.6); Potassium 3.7 mmol/L (3.5-5.1); Sodium 139 mmol/L (136-145)
[2025-06-20 23:26] LABS: Urine Culture Reflex Yes Yes
[2025-06-21] MEDS ORDERED: Ondansetron PF 4 MG/2 ML Vial ONE (00:15)
== END 2025-06-21 00:35 | disposition home or self-care (01) ==
LOC: ERS 21:02
DX: O21.9 Vomiting of pregnancy, unspecified (principal); O99.331 Smoking (tobacco) complicating pregnancy, first trimester; F17.200 Nicotine dependence, unspecified, uncomplicated; Z3A.01 Less than 8 weeks gestation of pregnancy
CPT/HCPCS: 76856; 80053; 81001; 83735; 84702; 85025; 87077; 87086; 93976; 96361; 96374; Q0162

== ENCOUNTER 2025-10-24 17:21 | Emergency (ER) | payer SELFPAY ==
[2025-10-24] MEDS ORDERED: HYDROcodone/Acetaminophen 5/325 mg Tablet ONE (17:56)
== END 2025-10-24 20:32 | disposition short-term general hospital (02) ==
LOC: ERS 17:21
DX: O99.891 Other specified diseases and conditions complicating pregnancy (principal); R10.21 Pelvic and perineal pain right side; O99.331 Smoking (tobacco) complicating pregnancy, first trimester; F17.290 Nicotine dependence, other tobacco product, uncomplicated; Z3A.24 24 weeks gestation of pregnancy; W01.0XXA Fall on same level from slipping, tripping and stumbling without subsequent striking against object, initial encounter
CPT/HCPCS: 99285